=== PATIENT | male | born 1965 | race Caucasian/White ===

== ENCOUNTER 2025-02-20 17:11 | Emergency (ER) | payer OTHER, SELFPAY ==
[2025-02-20 17:13] VITALS: BP 157/88; PULSE 96; RESP 16; TEMP 36.8; O2SAT 98
--- NOTE | 2025-02-20 17:49 | RAD_ITS ---
PROCEDURE: FOOT MIN 3 VIEWS 02/20/2025 REASON FOR EXAM: PAIN TECHNIQUE: FOOT MIN 3 VIEWS COMPARISON: Reviewed FINDINGS: Osseous structures intact. Mild scattered degenerative changes. Soft tissues normal. RAD/Foot min 3 Views IMPRESSION: As above. Reading Location: [facility]
--- NOTE | 2025-02-20 17:50 | EDS_ITS ---
<Statement entered by Juan A Gonzalez DO - 02/20/25 19:39> Patient was seen and examined with physician tax accounting assistant Windy All components of the history and physical confirmed and agreed. History of present illness and physical exam: Patient is a 59-year-old male with past medical history of hypertension who presents to the emergency department chief complaint of right foot pain and concern for broken toe. He states that he was chopping wood earlier this morning and thinks he hit his foot against a log causing his pain. He states that this afternoon after working in cooking dinner he sat in a chair to take shoe off and noted that he has severe burning pain in his right toes and foot and he states that he feels like he could have been stung by something or bit by something even there is no skin changes noted. He states that he feels like he blacked out for a second but came back to he states that he not fall out of the chair. He states that he then called his family members told them that he needed to be brought to the emergency department. Review of systems: Agree with above s Physical exam: Agree with above MDM Patient is a 59-year-old male who presents to the emergency department with a chief complaint of right foot pain and passing out secondary to the pain. On the differential diagnosis includes but not limited to vasovagal syncope, arrhythmia, broken metatarsal. Once workup is obtained reviewed he will be reevaluated. Patient's x-ray reviewed by myself by radiology and showed no acute fracture or dislocation. Patient EKG reviewed showed sinus rhythm rate of 92 bpm. Discussed the results with the patient he would like to go home he is advised to ice, elevate rotate Tylenol and ibuprofen [id number]. He is advised to return with worsening symptoms or any concerns. He is agreeable this plan as well as family at bedside all question concerns answered discharged home in stable condition. Final impression: Foot pain, right Syncope Disposition: Patient will be discharged home in stable condition Supervising attending attestation: Juan A Gonzalez D.O. [facility] History of Present Illness Chief Complaint: Syncope Narrative Narrative: 59-year-old male states he was chopping wood this morning and thinks he hit his right foot against a log pile and injured his fourth toe. When he took his boots off this afternoon he felt severe burning pain in the right of his right toes and foot. He is concerned maybe he was bit by a spider. He was sitting in
--- NOTE | 2025-02-20 17:50 | EX.ED.DYSGE1 ---
HPI History of Present Illness Chief Complaint: Syncope Narrative Narrative: 59-year-old male states he was chopping wood this morning and thinks he hit his right foot against a log pile and injured his fourth toe. When he took his boots off this afternoon he felt severe burning pain in the right of his right toes and foot. He is concerned maybe he was bit by a spider. He was sitting in a chair when this happened and states the pain caused him to blackout for a second. Since then he feels back to normal and only has pain when touching the toe. He denies chest pain or shortness of breath. PFSH PFSH Home Medications ?Medication ?Instructions ?Recorded ?Last Taken ?Type lisinopril 5 mg tablet 5 mg PO DAILY 02/20/25 Unknown History Social History Smoking Status: Current every day smoker tobacco type: cigarettes ROS ROS ED ROS Narrative Constitutional: Negative for fever, chills, malaise. CVS: Negative for chest pain. Respiratory: Negative for shortness of breath. Musc: Positive for foot pain, trauma. EXAM Physical Exam Narrative Exam Narrative: CONST: Patient sitting in no acute distress. EYES: Normal inspection. NECK: Normal inspection. RESP: No respiratory distress, CTAB. CVS: Regular rate and rhythm, no murmur, no gallop. SKIN: Color normal, no rash, warm, dry, intact. EXTREMITIES: Normal appearance of both lower extremities. Tender over right fourth toe without deformity or crepitus. No other tenderness of the ankle or foot. 2+ DP pulses. No erythema or edema. NEURO: Alert and answering questions appropriately. PSYCH: Normal affect. Const Vital Signs: 02/20/25 17:13 02/20/25 17:16 02/20/25 18:56 Temperature 98.2 F Temperature Source Oral Pulse Rate 96 91 Respiratory Rate 16 18 Respiratory Effort Normal Respiratory Pattern Normal Blood Pressure 157/88 H 146/84 H Blood Pressure Mean 111 104 Pulse Ox 98 99 Oxygen Delivery Method Room Air Room Air MDM MDM MDM Narrative Medical decision making narrative: History gathered from: Patient and family Differential: Foot contusion versus fracture 59-year-old male presents with right foot pain. He thinks he stubbed it this morning and has fourth toe pain which is reproducible on exam. States after he pulled his shoe off he had more severe pain and was worried he was bit by an insect but did not see any sign of bite or infection or any abnormality. He is neurovascularly intact. Right foot x-ray shows no acute findings. He reported briefly passing out due to the foot pain so an EKG was obtained and is normal. I do not feel he needs further blood work. He is ambulatory and was advised to take [id number] pain medicine as needed, and was discharged in stable condition Radiography Diagnostic Testing: Clinical Impression(s) from Imaging Studies Foot X-Ray 02/20/25 17:49 IMPRESSION: As above. Reading Location: [facility] ED attending interpretation of right foot shows no fracture or dislocation. EKG Initial EKG: Attestation: I personally reviewed and interpreted this EKG as follows: Interpretation: Sinus Rhythm and No Acute Injury Pattern Comments: Normal sinus rhythm at 92 bpm Normal intervals, no acute ischemic changes Discharge Plan Triage Chief Complaint: Syncope ED Midlevel Provider: Windy Zavala ED Provider: Juan A Gonzalez Dx/Rx/DC Orders Clinical Impression: Contusion of fourth toe, right Instructions: Bruises (Contusions) Prescriptions: No Action lisinopril 5 mg tablet 5 mg PO DAILY Primary Care Provider: Pepper Jimenez Referrals: Pepper Jimenez, CONTACT WORKER-C [Primary Care Provider] - Activity Restrictions/Additional Instructions: X-ray of your foot showed no broken bones. There is no external signs of blood or infection. Take Tylenol or Motrin as needed and monitor your symptoms. Print Language: [place] Disposition Disposition: Home, Self Care
--- NOTE | 2025-02-20 17:51 | EKG12_ITS ---
Test Reason : SYNCOPE Blood Pressure : */* mmHG Vent. Rate : 92 BPM Atrial Rate : 92 BPM P-R Int : 148 ms QRS Dur : 80 ms QT Int : 364 ms P-R-T Axes : -1 46 72 degrees QTcB Int : 450 ms Normal sinus rhythm Normal ECG Confirmed by STEVIE SANCHEZ, LANI ([id number]), videotape editor ELSI BAKER ([id number]) on 02/21/2025 9:48:38 AM Referred By: Confirmed By: LANI HUBBARD MD
[2025-02-20 18:56] VITALS: BP 146/84; PULSE 91; RESP 18; O2SAT 99
--- NOTE | 2025-02-20 18:58 | ED.RN ---
This RN bedside due to patient's family reporting patient is having increased anxiety. Physician notified of anxiety. Patient with noticeable anxiety stating get all of these wires off of me. This RN attempted to inform patient on importance of keeping monitors on due to syncopal episode and the need for continuous monitoring. Patient stated it's my foot that made this happen, not my chest. I was in a hospital 40 years ago. This RN asked patient how he manages his anxiety at home and if he takes and medications to help. Patient replied yelling at this nurse, yeah, I drink a beer!. Monitors removed at patient's insistence. Dr. Gonzalez notified of patient's refusal for continuous monitoring.
[2025-02-20 19:31] VITALS: BP 102/65; PULSE 61; RESP 14; TEMP 36.9; O2SAT 96
== END 2025-02-20 19:32 | disposition home or self-care (01) ==
PROVIDERS: Emergency Provider Emergency Medicine; PCP Nurse Practitioner Family; Visit Provider Emergency Medicine
DX: R55 Syncope and collapse (principal); F17.210 Nicotine dependence, cigarettes, uncomplicated; S90.121A Contusion of right lesser toe(s) without damage to nail, initial encounter; W22.09XA Striking against other stationary object, initial encounter; Y93.89 Activity, other specified
CPT/HCPCS: 73630; 93005; 99282